=== PATIENT | female | born 1985 | race African-American/Black ===

== ENCOUNTER 2017-09-20 07:55 | Emergency (ER) | payer SELFPAY | END 2017-09-20 09:19 | disposition home or self-care (01) | LOC: ERS 07:55 | DX: S29.012A Strain of muscle and tendon of back wall of thorax, initial encounter (principal); I10 Essential (primary) hypertension; V49.9XXA Car occupant (driver) (passenger) injured in unspecified traffic accident, initial encounter | CPT/HCPCS: 99283 ==

== ENCOUNTER 2018-07-10 07:34 | Emergency (ER) | payer SELFPAY ==
[2018-07-10] MEDS ORDERED: ISOVUE-370 76%-LOCM 1 ML ONE (08:15)
[2018-07-10 08:51] LABS: Mean Corpuscular HGB CONC 28.3 g/dL (32.0-36.0); Mean Corpuscular Hemoglobin 16.8 pg (27.0-31.0); Mean Corpuscular Volume 59.4 fL (78.0-98.0); Mean Platelet Volume 6.6 fL (7.4-10.4); Platelet Count 405 thou/uL (130-400); RBC Distribution Width 19.2 % (11.5-14.5); Red Blood Cell (RBC) Count 4.73 mill/uL (4.20-5.40); White Blood Cell (WBC) Count 4.1 thou/uL (4.8-10.8)
[2018-07-10 09:08] LABS: BHCG - Serum Negative (NEGATIVE); Pregs Control Background? CLEAR/WHITE (CLR/WHITE); Pregs Control Bar Appear? YES (CONTROL BAR)
[2018-07-10 09:11] LABS: ALT (SGPT) 18 U/L (8-55); AST (SGOT) 33 U/L (5-34); Albumin 3.9 g/dL (3.5-5.0); Alkaline Phosphatase 68 U/L (40-150); Anion Gap 11 mmol/L (10-20); BUN (Urea Nitrogen) 8 mg/dL (7.0-18.7); Bilirubin, Total 0.7 mg/dL (0.2-1.2); Calc. Creatinine Clearance 0 mL/min (70-130); Calcium 8.7 mg/dL (7.8-10.44); Carbon Dioxide 22 mmol/L (22-29); Chloride 107 mmol/L (98-107); Estimated GFR-MDRD Greater than 90; Globulin 3.7 g/dL (2.4-3.5); Glucose 94 mg/dL (70-105); Lipase 20 U/L (8-78); Potassium 4.3 mmol/L (3.5-5.1); Protein, Total 7.6 g/dL (6.0-8.3); Sodium 136 mmol/L (136-145)
[2018-07-10 09:40] LABS: Band 1 % (5-11); Elliptocytes SLIGHT = 2-5 cells (100X) (0-1/hpf); Eosinophils 2 % (0-10); Hypochromia MARKED = >30 cells (100X) (0-5/hpf); Lymphocytes 49 % (21-51); MDiff Complete? YES; Microcytosis MARKED = >30 cells (100X) (0-5/hpf); Monocytes 3 % (0-10); Neutrophil 45 % (42-75); Ovalocytes SLIGHT = 2-5 cells (100X) (0-1/hpf); Platelet Morphology Comment Appears Increased; Polychromasia SLIGHT = 2-3 cells (100X) (0-2/hpf); Reflex for Review?? YES; Tear Drops SLIGHT = 2-5 cells (100X) (0-1/hpf)
[2018-07-10 10:13] LABS: Bilirubin Negative (Negative); Blood, Urine Negative (Negative); Glucose, Urine (Dipstick) Negative (Negative); Leukocyte Negative (Negative); Nitrite Negative (Negative); Protein, Urine (Dipstick) Negative (Neg-Trace); Urobilinogen 0.2 mg/dL (0.2-1.0); pH, Urine 6.5 (5.0-9.0)
[2018-07-10 10:15] LABS: Clarity CLEAR (Clear)
--- NOTE | 2018-07-10 10:21 | CT ---
CT ABDOMEN AND PELVIS WITH IV CONTRAST: HISTORY: Right lower quadrant pain. FINDINGS: The lung bases are clear. The liver, spleen, pancreas, adrenal glands, and right kidney are normal. The punctate calculus is seen in the left kidney. There is a 9 mm low density lesion in the left ki dney, likely cyst. A tiny calcified gallstone is present. No free air, free fluid, or lymphadenopathy is seen in the abdomen or pelvis. A normal appearing boy endix is noted. Uterus and ovaries are present. There are postop changes of tubal ligation. No acu te osseous abnormalities are seen. A small hiatal hernia is present. There is a focal soft tissue density in the anterior abdominal subcutaneous fat of the right lower qu adrant, likely secondary to previous surgery. IMPRESSION: 1. No CT evidence of appendicitis. 2. Cholelithiasis. 3. Punctate, nonobstructing left renal calculus. 4. Small hiatal hernia. POS: [facility]
== END 2018-07-10 11:02 | disposition home or self-care (01) ==
LOC: ERS 07:34
DX: R10.31 Right lower quadrant pain (principal); D64.9 Anemia, unspecified; I10 Essential (primary) hypertension
CPT/HCPCS: 74177; 80053; 81003; 83690; 84703; 85025; 85060; 96372; J0500; Q9966

== ENCOUNTER 2019-03-10 19:12 | Emergency (ER) | payer SELFPAY ==
[2019-03-10] MEDS ORDERED: Ondansetron ODT 4 MG TAB ONE (20:34)
[2019-03-10] MEDS ORDERED: Ketorolac Tromethamine 60 MG/2 ML VIAL ONE (20:34)
[2019-03-10] MEDS ORDERED: Acetaminophen 500 MG TAB ONE (20:34)
== END 2019-03-10 22:40 | disposition home or self-care (01) ==
LOC: ERS 19:12
DX: R11.2 Nausea with vomiting, unspecified (principal); R51 Headache; R50.9 Fever, unspecified; I10 Essential (primary) hypertension
CPT/HCPCS: 87804; 96372; 99284; J1885; Q0162

== ENCOUNTER 2020-05-19 12:33 | Emergency (ER) | payer SELFPAY ==
[2020-05-19 23:32] LABS: SARS-CoV-2 PCR by NAA Not Detected (NotDetected)
== END 2020-05-19 13:51 ==
LOC: ERS 12:33
DX: R05 Cough (principal); R51.9 Headache, unspecified; R68.83 Chills (without fever); R11.0 Nausea; Z20.822 Contact with and (suspected) exposure to COVID-19
CPT/HCPCS: 87635; 99284; U0003; U0005

== ENCOUNTER 2020-07-03 07:17 | Emergency (ER) | payer SELFPAY ==
[2020-07-03 07:46] LABS: Bacteria/HPF None Seen HPF (None Seen); Bilirubin Negative (Negative); Blood, Urine 1+ (Negative); Clarity Clear (Clear); Glucose, Urine (Dipstick) Normal (Negative); Ketone, Urine Negative (Negative); Leukocyte 25 Leu/uL (Negative); Nitrite Negative (Negative); Protein, Urine (Dipstick) 10 mg/dL (Neg-Trace); RBC/HPF 0-3 HPF (0-3); Squamous Epithelial 0-3 HPF (0-3); Urobilinogen Normal mg/dL (Less than 2); WBC/HPF 0-3 HPF (0-3)
[2020-07-03 07:52] LABS: Pregnancy Test - Urine (BHCG) Negative (Negative); Pregu Control Background? CLEAR/WHITE (CLR/WHITE); Pregu Control Bar Appear? YES (CONTROL BAR)
[2020-07-03 08:29] LABS: #Eosinphils 0.1 thou/uL (0.0-0.7); #Lymphocytes 1.7 thou/uL (1.20-3.40); #Monocytes 0.3 thou/uL (0.11-0.59); #Neutrophils 3.3 thou/uL (1.40-6.50); %Basophils 0.8 % (0.0-1.0); %Eosinophils 1.4 % (0.0-10.0); %Lymphocytes 31.2 % (21.0-51.0); %Monocytes 5.3 % (0.0-10.0); %Neutrophils 61.3 % (42.0-75.0); Hemoglobin 7.2 g/dL (12.0-16.0); Hypochromia MODERATE=16-30 cells (100X) (0-5/hpf); MDiff Complete? YES; Mean Corpuscular HGB CONC 27.3 g/dL (32.0-36.0); Mean Platelet Volume 6.9 fL (7.4-10.4); Microcytosis MODERATE=15-30 cells (100X) (0-5/hpf); Platelet Count 854 thou/uL (130-400); Poikilocytosis SLIGHT = 6-15 cells (100X) (0-5/hpf); Polychromasia SLIGHT = 2-3 cells (100X) (0-2/hpf); RBC Distribution Width 23.3 % (11.5-14.5); Red Blood Cell (RBC) Count 4.77 mill/uL (4.20-5.40); Reflex for Review?? YES; Target Cells SLIGHT = 2-5 cells (100X) (0-1/hpf); White Blood Cell (WBC) Count 5.4 thou/uL (4.8-10.8)
[2020-07-03 08:31] LABS: Large Platelets SLIGHT; Platelet Morphology Comment Appears Increased
[2020-07-03 09:52] LABS: Calcium 8.5 mg/dL (7.8-10.44); Chloride 105 mmol/L (98-107); Sodium 135 mmol/L (136-145)
[2020-07-03 09:53] LABS: Globulin 3.6 g/dL (2.4-3.5); Glucose 98 mg/dL (70-105); Protein, Total 7.6 g/dL (6.0-8.3)
[2020-07-03 09:55] LABS: Anion Gap 12 mmol/L (10-20); Bilirubin, Total 0.7 mg/dL (0.2-1.2); Carbon Dioxide 22 mmol/L (22-29)
[2020-07-03 09:56] LABS: Alkaline Phosphatase 66 U/L (40-110)
[2020-07-03 09:57] LABS: BUN (Urea Nitrogen) 8 mg/dL (7.0-18.7); Calc. Creatinine Clearance 0 mL/min (70-130)
[2020-07-03 09:58] LABS: AST (SGOT) 20 U/L (5-34)
[2020-07-03 09:59] LABS: ALT (SGPT) 10 U/L (8-55); Lipase 21 U/L (8-78)
== END 2020-07-03 11:10 | disposition home or self-care (01) ==
LOC: ERS 07:17
DX: K80.20 Calculus of gallbladder without cholecystitis without obstruction (principal); D50.9 Iron deficiency anemia, unspecified; N20.0 Calculus of kidney; I10 Essential (primary) hypertension
CPT/HCPCS: 74176; 80053; 81003; 81015; 81025; 83690; 85025; 85060

== ENCOUNTER 2022-01-09 07:22 | Emergency (ER) | payer BC, OTHER ==
[2022-01-09] MEDS ORDERED: Dexamethasone 10 MG/ML VIAL ONE (07:57)
[2022-01-09] MEDS ORDERED: Ketorolac Tromethamine 30 MG/ML VIAL ONE (07:57)
== END 2022-01-09 08:11 | disposition home or self-care (01) ==
LOC: ERS 07:22
DX: J02.9 Acute pharyngitis, unspecified (principal); I10 Essential (primary) hypertension; Z79.899 Other long term (current) drug therapy
CPT/HCPCS: 96372; 99283; J1100; J1885

== ENCOUNTER 2022-05-11 10:16 | Emergency (ER) | payer BC, OTHER | END 2022-05-11 14:21 | disposition left against medical advice (07) | LOC: ERS 10:16 | DX: Z53.21 Procedure and treatment not carried out due to patient leaving prior to being seen by health care provider (principal); I10 Essential (primary) hypertension | CPT/HCPCS: 87081; 87430 ==

== ENCOUNTER 2022-10-03 17:43 | Emergency (ER) | payer OTHER, BC ==
[2022-10-03] MEDS ORDERED: Bacitracin 1 PK ONE (18:39)
== END 2022-10-03 19:08 | disposition home or self-care (01) ==
LOC: ERS 17:43
DX: S61.214A Laceration without foreign body of right ring finger without damage to nail, initial encounter (principal); I10 Essential (primary) hypertension; V89.2XXA Person injured in unspecified motor-vehicle accident, traffic, initial encounter